=== PATIENT | male | born 1970 | race American Indian/Alaskan Native ===

== ENCOUNTER 2021-08-06 23:41 | Emergency (ER) | payer SELFPAY ==
[2021-08-07] MEDS ORDERED: ONDANSETRON 4 MG/2 ML INJ IV ONE (02:59)
[2021-08-07] MEDS ORDERED: MORPHINE 4 MG/1 ML INJ IV ONE (02:59)
[2021-08-07 03:38] LABS: Basophils # (Auto) 0.1 K/mm3 (0.0-0.1); Basophils % (Auto) 0.6 % (0.0-1.8); Hematocrit 44.5 % (35.5-45.6); Hemoglobin 14.7 gm/dl (11.8-15.2); Lymphocytes # (Auto) 1.3 K/mm3 (1.2-5.4); Lymphocytes % (Auto) 7.3 % (13.4-35.0); Mean Corpuscular HGB Conc 33 % (32-34); Mean Corpuscular Volume 99 fl (84-94); Monocytes # (Auto) 1.1 K/mm3 (0.0-0.8); Monocytes % (Auto) 6.4 % (0.0-7.3); Platelet Count 203 K/mm3 (140-440); Red Cell Distribution Width 12.6 % (13.2-15.2)
--- NOTE | 2021-08-07 03:49 | Emergency Department Report ---
ED General Adult HPI - General Chief complaint: Abdominal Pain Stated complaint: LF FLANK PAIN Time Seen by Provider: 08/07/21 02:43 Source: EMS Mode of arrival: Stretcher Limitations: No Limitations - History of Present Illness Initial comments: Patient presents with complaints of left sided abdominal pain, sharp, radiating to L back, 8/10, not worsened or relieved by anything. Endorses nausea, denies vomiting. Last BM was today and formed. Endorses flatulence. Denies dysuria, frequency, urgency. Has a hx of kidney stones. Severity scale (0 -10): 7 - Related Data Home Medications Medication Instructions Recorded Confirmed Last Taken HCTZ 10/14/15 Unknown Previous Rx's Medication Instructions Recorded Last Taken Type Divalproex ER [Depakote ER] 500 mg PO QHS #30 tablet 10/16/15 Unknown Rx Quetiapine Fumarate [Seroquel] 100 mg PO BID #60 tablet 10/16/15 Unknown Rx traZODone [Desyrel] 100 mg PO QHS #30 tablet 10/16/15 Unknown Rx Ondansetron [Zofran ODT TAB] 1 tab SL Q8HR PRN 3 Days #9 08/07/21 Unknown Rx tab.rapdis Tamsulosin [Flomax] 1 tab PO QDAY 7 Days #7 cap 08/07/21 Unknown Rx oxyCODONE /ACETAMINOPHEN [Percocet 1 tab PO Q6HR PRN 3 Days #12 tablet 08/07/21 Unknown Rx 5/325] Allergies Allergy/AdvReac Type Severity Reaction Status Date / Time No Known Allergies Allergy Unverified 10/14/15 06:12 ED Review of Systems ROS: Stated complaint: LF FLANK PAIN Other details as noted in HPI Comment: All other systems reviewed and negative Constitutional: denies: chills, fever ED Past Medical Hx - Past Medical History Hx Hypertension: Yes Hx CVA: Yes (2008) Hx Congestive Heart Failure: No Hx Diabetes: No Hx Psychiatric Treatment: Yes (bipolar) Hx Asthma: No Hx COPD: No - Social History Smoking Status: Current Every Day Smoker Substance Use Type: Alcohol - Medications Home Medications: Home Medications Medication Instructions Recorded Confirmed Last Taken Type HCTZ 10/14/15 Unknown History Divalproex ER [Depakote ER] 500 mg PO QHS #30 tablet 10/16/15 Unknown Rx Quetiapine Fumarate [Seroquel] 100 mg PO BID #60 tablet 10/16/15 Unknown Rx traZODone [Desyrel] 100 mg PO QHS #30 tablet 10/16/15 Unknown Rx Ondansetron [Zofran ODT TAB] 1 tab SL Q8HR PRN 3 Days #9 08/07/21 Unknown Rx tab.rapdis Tamsulosin [Flomax] 1 tab PO QDAY 7 Days #7 cap 08/07/21 Unknown Rx oxyCODONE /ACETAMINOPHEN [Percocet 1 tab PO Q6HR PRN 3 Days #12 tablet 08/07/21 Unknown Rx 5/325] ED Physical Exam - General Limitations: No Limitations General appearance: alert, in no apparent distress - Head Head exam: Present: atraumatic, normocephalic - Eye Eye exam: Present: PERRL, EOMI - ENT ENT exam: Present: mucous membranes moist, other (airway patent) - Neck Neck exam: Present: other (supple; no JVD) - Respiratory Respiratory exam: Present: other (good air entry, nml I:E, CTAB, no use of ESTRELLA) - Cardiovascular Cardiovascular Exam: Present: regular rate. Absent: rubs, gallop - GI/Abdominal GI/Abdominal exam: Present: soft, other (tender to palpation in L flank and LLQ). Absent: guarding, rebound - Back Exam Back exam: Present: full ROM, CVA tenderness (L). Absent: CVA tenderness (R) - Neurological Exam Neurological exam: Present: alert, oriented X3, CN II-XII intact. Absent: motor sensory deficit - Skin Skin exam: Present: warm, normal color ED Course Vital Signs 08/06/21 08/07/21 08/07/21 23:41 01:21 01:23 Temperature 97.2 F L 98.5 F Pulse Rate 62 71 Respiratory 18 12 Rate Blood Pressure Blood Pressure 176/90 163/99 [Left] O2 Sat by Pulse 99 97 98 Oximetry 08/07/21 08/07/21 08/07/21 01:31 01:45 02:01 Temperature Pulse Rate 49 L 85 52 L Respiratory 17 16 15 Rate Blood Pressure 163/99 146/87 167/100 Blood Pressure [Left] O2 Sat by Pulse 96 96 94 Oximetry 08/07/21 08/07/21 08/07/21 02:15 02:31 02:45 Temperature Pulse Rate 50 L 56 L 51 L Respiratory 15 16 16 Rate Blood Pressure 144/81 Blood Pressure [Left] O2 Sat by Pulse 96 95 95 Oximetry 08/07/21 08/07/21 08/07/21 03:01 03:15 03:37 Temperature Pulse Rate 87 52 L Respiratory 16 12 Rate Blood Pressure 161/94 161/94 Blood Pressure [Left] O2 Sat by Pulse 97 95 97 Oximetry 08/07/21 08/07/21 08/07/21 03:45 03:56 04:01 Temperature Pulse Rate 51 L Respiratory 14 Rate Blood Pressure 155/86 Blood Pressure [Left] O2 Sat by Pulse 97 100 96 Oximetry 08/07/21 08/07/21 08/07/21 04:15 04:31 04:45 Temperature Pulse Rate 60 75 52 L Respiratory 12 21 14 Rate Blood Pressure Blood Pressure [Left] O2 Sat by Pulse 97 97 95 Oximetry 08/07/21 08/07/21 08/07/21 05:01 05:15 05:31 Temperature Pulse Rate 53 L 55 L 54 L Respiratory 14 12 12 Rate Blood Pressure 115/54 115/54 Blood Pressure [Left] O2 Sat by Pulse 95 96 95 Oximetry 08/07/21 08/07/21 08/07/21 05:45 06:01 06:15 Temperature Pulse Rate 53 L 79 91 H Respiratory 14 14 15 Rate Blood Pressure 115/54 135/84 Blood Pressure [Left] O2 Sat by Pulse 95 95 95 Oximetry 08/07/21 08/07/21 08/07/21 06:31 06:45 07:01 Temperature 98.3 F Pulse Rate Respiratory Rate Blood Pressure Blood Pressure 148/91 [Left] O2 Sat by Pulse 96 96 Oximetry ED Medical Decision Making - Lab Data Result diagrams: 08/07/21 03:04 08/07/21 03:04 Laboratory Tests 08/07/21 08/07/21 08/07/21 03:04 03:04 05:17 WBC 17.9 H RBC 4.50 Hgb 14.7 Hct 44.5 MCV 99 H MCH 33 H MCHC 33 RDW 12.6 L Plt Count 203 Lymph % (Auto) 7.3 L [place] % (Auto) 6.4 Eos % (Auto) 0.0 Baso % (Auto) 0.6 Lymph # (Auto) 1.3 [place] # (Auto) 1.1 H Eos # (Auto) 0.0 Baso # (Auto) 0.1 Seg Neutrophils % 85.7 H Seg Neutrophils # 15.4 H Sodium 141 Potassium 4.0 Chloride 104.5 Carbon Dioxide 22 Anion Gap 19 BUN 12 Creatinine 1.2 Estimated GFR > 60 BUN/Creatinine Ratio 10 Glucose 106 H Calcium 9.6 Total Bilirubin 0.70 AST 16 ALT 15 Alkaline Phosphatase 88 Total Protein 6.8 Albumin 4.3 Albumin/Globulin Ratio 1.7 Lipase 17 Urine Color Yellow Urine Turbidity Clear Urine pH 6.0 Ur Specific [place] 1.024 Urine Protein 100 mg/dl Urine Glucose (UA) Neg Urine Ketones Tr Urine Blood Lg Urine Nitrite Neg Urine Bilirubin Neg Urine Urobilinogen 2.0 Ur Leukocyte Esterase Neg Urine WBC (Auto) 6.0 Urine RBC (Auto) > 182.0 U Epithel Cells (Auto) < 1.0 Urine Mucus 2+ CT abd/pelvis: 5mm L ureteral stone - Medical Decision Making Likely 2/2 ureterolithiasis. No signs of pyelonephritis, ELVA or sepsis. Recieved morphine 4 mg IV x 1, zofran 4 mg IV x 1. Pain resolved. [employer] AWAR[employer] consulted Critical care attestation.: If time is entered above; I have spent that time in minutes in the direct care of this critically ill patient, excluding procedure time. ED Disposition Clinical Impression: Ureterolithiasis Disposition: 01 HOME / SELF CARE / HOMELESS Is pt being admited?: No Does the pt Need Aspirin: No Condition: Stable Instructions: Renal Colic, [id number] Additional Instructions: Make sure you follow up with the urologist as referred. Return to the ER if your symptoms worsen. Prescriptions: Tamsulosin [Flomax] 1 tab PO QDAY 7 Days #7 cap oxyCODONE /ACETAMINOPHEN [Percocet 5/325] 1 tab PO Q6HR PRN 3 Days #12 tablet PRN Reason: Pain Ondansetron [Zofran ODT TAB] 1 tab SL Q8HR PRN 3 Days #9 tab.rapdis PRN Reason: Nausea And Vomiting Referrals: PRIMARY CARE, [Primary Care Provider] - 3-5 Days YEIMI RODRIGUEZ MD [Staff Physician] - 3-5 Days
--- NOTE | 2021-08-07 03:52 | Cat Scan Report ---
CT ABDOMEN AND PELVIS WITHOUT CONTRAST INDICATION / CLINICAL INFORMATION: Pt complains of LEFT flank pain. TECHNIQUE: Axial CT images were obtained through the abdomen and pelvis without IV contrast. All CT scans at this location are performed using CT dose reduction for ALARA by means of automated exposure control. COMPARISON: None available. FINDINGS: LOWER CHEST: Dependent atelectatic changes of the lower lobes. No acute findings within the chest. LIVER: No significant abnormality. GALLBLADDER: No significant abnormality. BILE DUCTS: No significant abnormality. SPLEEN: No significant abnormality. PANCREAS: No significant abnormality. ADRENALS: No significant abnormality. RIGHT KIDNEY / URETER: Numerous small 2 to 3 mm nonobstructing stones. No additional urolithiasis. LEFT KIDNEY / URETER: Left kidney demonstrates moderate hydronephrosis with moderate perinephric fat stranding. The left ureter is enlarged to the level of inferior endplate of L3 at which point there i s 5 mm ureteral stone. Additional small 1 to 2 mm nephroliths present within the lower pole and upper pole calyces. Small 1.3 cm cyst present within the upper left kidney. STOMACH / DUODENUM / SMALL BOWEL: No significant abnormality. COLON: No significant abnormality. APPENDIX: No significant abnormality. PERITONEUM: No free air or free fluid are present within the abdomen or pelvis. LYMPH NODES: No significant adenopathy. AORTA / ARTERIES: No significant abnormality. IVC / VEINS: No significant abnormality. URINARY BLADDER: No significant abnormality. REPRODUCTIVE ORGANS: No significant abnormality. ADDITIONAL ABDOMINAL/PELVIC FINDINGS: None. SKELETAL SYSTEM: Moderate loss of intervertebral disc space L5-S1 with vacuum disc phenomenon and scl erotic adjacent endplate changes. IMPRESSION: 1. 5 mm left ureteral stone with moderate obstructive change. Stone lies at approximately inferior en dplate of L3. 2. Additional bilateral nonobstructing nephroliths. Signer Name: Bird Lala II, MD Signed: 08/07/2021 3:48 AM Workstation Name: [id number]
[2021-08-07 03:59] LABS: Alanine Aminotransferase 15 units/L (7-56); Albumin 4.3 g/dL (3.9-5); BUN/Creatinine Ratio 10; Blood Urea Nitrogen 12 mg/dL (9-20); Calcium 9.6 mg/dL (8.4-10.2); Hemolysis Index 3
[2021-08-07 05:36] LABS: Bilirubin,Urine NEG (Negative); Blood,Urine LG (Negative); Color,Urine Yellow (Yellow); Mucus,Urine 2+ /HPF
[2021-08-07 05:40] LABS: RBC,Urine > 182.0 /HPF (0.0-6.0)
[2021-08-07 07:02] VITALS: BP 135/84
== END 2021-08-07 07:02 | disposition home or self-care (01) ==
LOC: ED 23:41
DX: N20.1 Calculus of ureter (principal); I10 Essential (primary) hypertension; Z86.73 Personal history of transient ischemic attack (TIA), and cerebral infarction without residual deficits; F31.9 Bipolar disorder, unspecified; F17.200 Nicotine dependence, unspecified, uncomplicated
CPT/HCPCS: 36415; 74176; 80053; 81001; 83690; 85025; 96374; 96375; 99284; J2270; J2405